=== PATIENT | male | born 1995 | race Caucasian/White ===

== ENCOUNTER 2017-01-12 13:06 | Emergency (ER) | payer MEDICAID ==
[~2017-01-12] VITALS: Ht 182.9 cm; Wt 103.0 kg
[2017-01-12 13:10] VITALS: BP 128/80
== END 2017-01-12 14:04 | disposition home or self-care (01) ==
LOC: ED 13:30
DX: M54.42 Lumbago with sciatica, left side (principal); M54.16 Radiculopathy, lumbar region; F17.200 Nicotine dependence, unspecified, uncomplicated
CPT/HCPCS: 99283

== ENCOUNTER 2017-09-24 00:10 | Emergency (ER) | payer MEDICAID ==
[~2017-09-24] VITALS: Ht 182.9 cm; Wt 108.9 kg
[2017-09-24 00:12] VITALS: BP 131/75
[2017-09-24] MEDS ORDERED: LIDOCAINE-MPF 1%, 2ML ONE (00:54)
[2017-09-24] MEDS ORDERED: LIDOCAINE-MPF 1%, 5ML INFIL ONE (01:00)
[2017-09-24] MEDS ORDERED: AMOXICILLIN 500 MG CAPSULE PO ONE (01:30)
[2017-09-24] MEDS ORDERED: LIDOCAINE-MPF 2% ,5ML ONE ×2 (01:47→01:49)
[2017-09-24] MEDS ORDERED: LIDOCAINE 2%, 10ML INFIL ONE (02:00)
== END 2017-09-24 02:50 | disposition home or self-care (01) ==
LOC: ED 02:45
DX: S02.2XXB Fracture of nasal bones, initial encounter for open fracture (principal); S01.21XA Laceration without foreign body of nose, initial encounter; S01.511A Laceration without foreign body of lip, initial encounter; S06.9X9A Unspecified intracranial injury with loss of consciousness of unspecified duration, initial encounter; F10.120 Alcohol abuse with intoxication, uncomplicated; F17.210 Nicotine dependence, cigarettes, uncomplicated; Y04.0XXA Assault by unarmed brawl or fight, initial encounter; Y93.89 Activity, other specified; Y92.89 Other specified places as the place of occurrence of the external cause; Y99.8 Other external cause status
CPT/HCPCS: 13152; 70450; 70486; 71101; 99285; J3490

== ENCOUNTER 2017-10-08 16:59 | Emergency (ER) | payer MEDICAID, OTHER ==
[~2017-10-08] VITALS: Ht 182.9 cm; Wt 107.0 kg
[2017-10-08 17:20] VITALS: BP 122/84
== END 2017-10-08 18:06 | disposition home or self-care (01) ==
LOC: ED 17:21
DX: S01.81XD Laceration without foreign body of other part of head, subsequent encounter (principal); X58.XXXD Exposure to other specified factors, subsequent encounter
CPT/HCPCS: 99281